=== PATIENT | female | born 2005 | race Caucasian/White ===

== ENCOUNTER 2024-06-08 09:33 | Emergency (ER) | payer MEDICAID ==
[~2024-06-08] VITALS: Ht 157.5 cm; Wt 60.0 kg
[2024-06-08 09:35] VITALS: TEMP 36.9; O2SAT 99
[2024-06-08] MEDS ORDERED: IBUP-2029 MT (10:27)
[2024-06-08 10:36] VITALS: BP 135/91; PULSE 89; RESP 18
[2024-06-08] MEDS: IBUPROFEN 600MG TABLET PO ONE (10:36)
== END 2024-06-08 12:07 | disposition home or self-care (01) ==
LOC: ER 09:33
DX: S20.211A Contusion of right front wall of thorax, initial encounter (principal); X58.XXXA Exposure to other specified factors, initial encounter; Y93.89 Activity, other specified; Y92.89 Other specified places as the place of occurrence of the external cause; Y99.8 Other external cause status
CPT/HCPCS: 71045; 99283